=== PATIENT | male | born 1995 | race Caucasian/White ===

== ENCOUNTER 2024-07-14 23:38 | Emergency (ER) | payer SELFPAY ==
[~2024-07-14] VITALS: Ht 166.1 cm; Wt 82.4 kg
[2024-07-14 23:40] VITALS: BP 118/64; RESP 16; TEMP 98.7; O2SAT 99
[2024-07-14 23:41] VITALS: PULSE 91; O2SAT 98
[2024-07-15] MEDS: KETOROLAC 15MG/ML VIAL IM ONE (00:11)
== END 2024-07-15 01:12 | disposition home or self-care (01) ==
LOC: ER 23:38
DX: S51.832A Puncture wound without foreign body of left forearm, initial encounter (principal); W54.0XXA Bitten by dog, initial encounter; Y93.89 Activity, other specified; Y92.89 Other specified places as the place of occurrence of the external cause; Y99.8 Other external cause status
CPT/HCPCS: 73090; 99283; 96372; J1885; Z7610 ×2